=== PATIENT | male | born 1940 | race Caucasian/White ===

== ENCOUNTER 2021-05-02 11:27 | Emergency (ER) | payer MEDICARE ==
[~2021-05-02] VITALS: Ht 176.5 cm; Wt 73.0 kg
[2021-05-02] MEDS ORDERED: IV NORMAL SALINE 1,000ML 1,000 ML IV SCH (12:00)
--- NOTE | 2021-05-02 12:06 | PHYS DOC ---
General Adult EDM: Chief Complaint: FATIGUE HPI: HPI: Patient is a 80-year-old male who presents to the emergency department from [facility] for complaints of possible cellulitis versus DVT to his right lower leg. Per nursing staff, patient is having redness, swelling and warmth to his right lower leg at the site of a venous ulcer. According to patient's chart from facility, patient has had a venous ulcer to the right lower leg since March 27 and has been being cared for with chlorhexidine washes and mupirocin ointment. Patient is currently being treated for MRSA at his site of his removed peg tube with Augmentin. Patient denies any abdominal pain, chest pain, lower extremity pain, shortness of breath, fevers, nausea, vomiting. 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 (TUNDE LUNDY APRN) Review of Systems: Review of Systems: Constitutional: negative unless reported in HPI Eyes: negative unless reported in HPI HENT: negative unless reported in HPI Respiratory: negative unless reported in HPI Cardiovascular: negative unless reported in HPI GI: negative unless reported in HPI : negative unless reported in HPI Musculoskeletal: negative unless reported in HPI Integument: negative unless reported in HPI Neurologic: negative unless reported in HPI Endocrine: negative unless reported in HPI Lymphatic: negative unless reported in HPI Psychiatric: negative unless reported in HPI (TUNDE LUNDY APRN) Current Medications: Current Meds: Current Medications Medications (Trade) Dose Ordered Sig/Lucía Start Time Stop Time Status Last Admin Dose Admin Sodium Chloride 1,000 ml @ 1,000 mls/hr Q1H 05/02/21 12:00 05/02/21 12:59 (TUNDE LUNDY APRN) Allergies: Allergies: Allergies Coded Allergies Type Severity Reaction Last Updated Verified No Known Drug Allergies 05/02/21 No (TUNDE LUNDY APRN) Physical Exam: PE: Constitutional: Well developed, well nourished, no acute distress, non-toxic appearance. [] HENT: Normocephalic, atraumatic, bilateral external ears normal, oropharynx moist, no oral exudates, nose normal. [] Eyes: PERRL, EOMI, conjunctiva normal, no discharge. [] Neck: Normal range of motion, no stridor Cardiovascular:Heart rate regular rhythm, no murmur [] Lungs & Thorax: Bilateral breath sounds clear to auscultation [] Abdomen: Bowel sounds normal, soft, no tenderness, 0.5 cm circular wound to left upper abdomen at previous PEG tube site with purulent drainage and erythema surrounding there is a dressing in place over site that is dated for May 01, no masses, obese, no pulsatile masses. [] Skin: Warm, dry, no erythema, no rash. [] Back: No tenderness Extremities: No tenderness, no cyanosis, no clubbing, ROM intact, no edema noted to left lower extremity. Right lower extremity: Erythema, warmth and swelling noted to right lower extremity from knee down, patient has a weak but palpable dorsalis pedis pulse, patient has a ulceration to the medial aspect of his right ankle approximately 3 cm in diameter that involves subcutaneous tissue with some sloughing of tissue. Neuro intact to bilateral lower extremities. Neurologic: Alert and oriented X 3, normal motor function, normal sensory function, no focal deficits noted. [] Psychologic: Affect normal, judgement normal, mood normal. [] (TUNDE LUNDY APRN) Current Patient Data: Labs: Laboratory Tests Test 05/02/21 12:15 05/02/21 12:20 White Blood Count 7.6 x10^3/uL Red Blood Count 2.79 x10^6/uL Hemoglobin 9.8 g/dL Hematocrit 29.3 % Mean Corpuscular Volume 105 fL Mean Corpuscular Hemoglobin 35 pg Mean Corpuscular Hemoglobin Concent 34 g/dL Red Cell Distribution Width 12.1 % Platelet Count 408 x10^3/uL Neutrophils (%) (Auto) 77 % Lymphocytes (%) (Auto) 8 % Monocytes (%) (Auto) 8 % Eosinophils (%) (Auto) 6 % Basophils (%) (Auto) 1 % Neutrophils # (Auto) 5.9 x10^3uL Lymphocytes # (Auto) 0.6 x10^3/uL Monocytes # (Auto) 0.6 x10^3/uL Eosinophils # (Auto) 0.5 x10^3/uL Basophils # (Auto) 0.0 x10^3/uL Erythrocyte Sedimentation Rate Pending Urine Collection Type Unknown Urine Color Yellow Urine Clarity Hazy Urine pH 6.0 Urine Specific [place] 1.020 Urine Protein Neg Urine Glucose (UA) Neg mg/dL Urine Ketones (Stick) Neg mg/dL Urine Blood Small Urine Nitrite Neg Urine Bilirubin Neg Urine Urobilinogen Dipstick 0.2 mg/dL Urine Leukocyte Esterase Large Urine RBC 1-2 /HPF Urine WBC >40 /HPF Urine Squamous Epithelial Cells None /LPF Urine Bacteria Few /HPF Sodium Level 143 mmol/L Potassium Level 4.3 mmol/L Chloride Level 107 mmol/L Carbon Dioxide Level 28 mmol/L Anion Gap 8 Blood Urea Nitrogen 19 mg/dL Creatinine 1.2 mg/dL Estimated GFR (Cockcroft-Gault) 58.4 BUN/Creatinine Ratio 16 Glucose Level 88 mg/dL Calcium Level 8.9 mg/dL Total Bilirubin 0.2 mg/dL Aspartate Amino Transf (AST/SGOT) 25 U/L Alanine Aminotransferase (ALT/SGPT) 27 U/L Alkaline Phosphatase 118 U/L Total Protein 6.2 g/dL Albumin 2.6 g/dL Albumin/Globulin Ratio 0.7 Lactic Acid Level 0.9 mmol/L Troponin I High Sensitivity 9 ng/L Current Medications Medications (Trade) Dose Ordered Sig/Lucía Route PRN Reason Start Time Stop Time Status Last Admin Dose Admin Sodium Chloride 1,000 ml @ 1,000 mls/hr Q1H IV 05/02/21 12:00 05/02/21 12:59 DC 05/02/21 12:25 (TUNDE LUNDY APRN) EKG: EKG: EKG performed by ER staff at 1312 shows sinus rhythm with a rate of 75, leftward axis deviation, no STEMI read by Dr. Wick at 1312 [] (TUNDE LUNDY APRN) Radiology/Procedures: Radiology/Procedures: []PROCEDURE: VENOUS LOWER EXTREMITY RIGHT STUDY: US DPLX VENOUS EXTREMITY LOWER RT INDICATION: Right calf pain and edema. Calf wound. TECHNIQUE: Color-flow and pulsed wave duplex ultrasound with compression of venous structures of the right lower extremity. COMPARISON: None Available. FINDINGS: The right common femoral vein and proximal great saphenous vein are patent. The proximal and mid superficial femoral vein and proximal deep femoral vein are patent with normal compressibility. At the distal right superficial femoral vein and popliteal vein there is a patent lumen identified however incomplete compressibility. Extensive cobblestoning of the subcutaneous fat in the calf consistent with edema. The veins of the calf are not visualized due to overlying edema. IMPRESSION: Incompletely occlusive mural thrombus in the right distal superficial femoral vein and popliteal vein consistent with deep venous thrombosis, likely chronic. Findings discussed with TUNDE LUNDY APRN at 05/02/2021 1:04 PM. FOR INTERNAL CODING PURPOSES RESULT CODE: (C) Electronically signed by: Jorje Kirby MD (05/02/2021 1:04 PM) [id number] DICTATED AND SIGNED BY: JORJE KIRBY MD DATE: 05/02/21 1259 CC: TUNDE LUNDY APRN; PCP,NO ~MTH0 0 (TUNDE LUNDY APRN) Heart Score: C/O Chest Pain: No Risk Factors: Risk Factors: DM, Current or recent (<one month) smoker, HTN, HLP, family history of CAD, obesity. Risk Scores: Score 0 - 3: 2.5% MACE over next 6 weeks - Discharge Home Score 4 - 6: 20.3% MACE over next 6 weeks - Admit for Clinical Observation Score 7 - 10: 72.7% MACE over next 6 weeks - Early Invasive Strategies (TUNDE LUNDY APRN) Course & Med Decision Making: Course & Med Decision Making Pertinent Labs and Imaging studies reviewed. (See chart for details) [] Patient presents to the emergency department for swelling, redness and warmth noted to right lower extremity from a rehab facility. Per nursing staff, patient is currently being treated for MRSA at the previous PEG tube site with Augmentin. Patient does have a history of venous ulcers to his right ankle and is being treated with chlorhexidine washes and mupirocin ointment. Patient also has a history of a DVT therefore nursing staff was concerned for possible DVT to his right lower leg. Patient does not have any complaints. Patient is afebrile. He does not wear any oxygen at the facility but is 91% on room air in the emergency department and was placed on 2 L via nasal cannula. He does not report any shortness of breath or chest pain. Work-up in the emergency department today consisted of blood work including lactic acid, ESR, blood cultures, urinalysis, and ultrasound of right lower leg to rule out DVT. The 9.8, hematocrit 29.3, patient does have a history of anemia. Patient does not have any leukocytosis or leukopenia. Negative troponin, CMP unremarkable, negative lactic acidosis. Urinalysis does show urinary tract infection, patient is currently on Augmentin, he will be given a dose of IV Rocephin in the emergency department and advised to continue Augmentin. 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 Chest x-ray shows no acute findings. [facility], they report the patient has a wound care plus and saw them today. I noified RN about eliquis dose adjustment, uti and need for continuing wound care and monitoring. Patient's vital signs are stable, he is not requiring any oxygen, his [id number] on room air is 98%. Consulted supervising physician. I discussed with patient all findings and diagnostic testing as well as the need to follow-up with PCP for further evaluation and treatment or return to the ER if any new or worsening symptoms. Strict return precautions were also discussed at length. Patient voiced understanding and agreement with the plan. Patient is hemodynamically stable at the time of disposition. (TUNDE LUNDY APRN) Course & Med Decision Making I personally saw and evaluated patient along with involvement of the PA/OPERATIONS AGENT. I agree with the reported plan of care and ultimate disposition. I performed all aspects of MDM as documented including evaluation of patient/s condition(s), review and analysis of available data, and determination of risk of patient management decisions. Patient has DVT, likely chronic. Needs to increase Eliquis to treatment dose from 5 mg twice daily to 10 mg twice daily, [facility]. Urinalysis showing leuk esterase, currently on antibiotic therapy for outpatient cellulitis on Augmentin. I agree with decision to administer Rocephin and continue Augmentin with [facility] and monitoring of urine culture. Patient has good pulses to foot, nonischemic in nature with viable tissue for a what appears to be healing venous ulcer of distal medial portion of guerrero Electronically signed, Leeann Wick DO (LEEANN WICK DO) Fernando Disclaimer: Fernando Disclaimer: This electronic medical record was generated, in whole or in part, using a voice recognition dictation system. (TUNDE LUNDY APRN) Departure Departure: Impression: Primary Impression: Urinary tract infection Qualified Codes: N30.01 - Acute cystitis with hematuria Additional Impression: Deep vein thrombosis Qualified Codes: I82.531 - Chronic embolism and thrombosis of right popliteal vein Disposition: HOME / SELF CARE / HOMELESS Condition: GOOD Referrals: PCP,NO (PCP) Patient Instructions: Deep Vein Thrombosis, Urinary Tract Infection Additional Instructions: You were seen in the emergency department for redness, warmth and swelling to your right lower leg. You do have a blood clot which is likely chronic. Please take the Eliquis that is prescribed for you, noticed the dose adjustment for DVT treatment. Continue taking your Augmentin which should treat your wound and your urinary tract infection, you were given a dose of IV antibiotics in the emergency department. Please continue to follow-up with wound care regarding the ulceration on your right ankle. Follow-up with the primary care provider at [facility] tomorrow regarding your ER visit. Return to the emergency department if you develop altered mental status, confusion, high fevers refractory to treatment, intractable nausea or vomiting, lethargy, abdominal pain, or worsening of your infection as indicated by increased redness, warmth, swelling or drainage, severe back pain. Scripts Apixaban (ELIQUIS) 5 Mg Tablet 10 MG PO BID for dvt for 7 Days, #28 TAB 0 Refills Prov: TUNDE LUNDY APRN 05/02/21 TUNDE LUNDY APRN May 02, 2021 12:06 LEEANN WICK DO May 02, 2021 14:34
[2021-05-02 12:56] LABS: BASO % 1 % (0-3); EOS # 0.5 x10^3/uL (0.0-0.7); EOS % 6 % (0-3); HEMATOCRIT 29.3 % (39.0-53.0); HEMOGLOBIN 9.8 g/dL (13.0-17.5); LYMPH # 0.6 x10^3/uL (1.0-4.8); LYMPH % 8 % (24-48); MEAN CORPUSCULAR HEMOGLOBIN 35 pg (25-35); MEAN CORPUSCULAR HGB CONC 34 g/dL (31-37); MEAN CORPUSCULAR VOLUME 105 fL (79-100); MONO # 0.6 x10^3/uL (0.0-1.1); MONO % 8 % (0-9); NEUT # 5.9 x10^3uL (1.8-7.7); NEUT % 77 % (31-73); PLATELET COUNT 408 x10^3/uL (140-400); RED BLOOD COUNT 2.79 x10^6/uL (4.30-5.70); RED CELL DISTRIBUTION WIDTH 12.1 % (11.5-14.5); WHITE BLOOD COUNT 7.6 x10^3/uL (4.0-11.0)
[2021-05-02 13:02] LABS: CALCIUM 8.9 mg/dL (8.5-10.1); CREATININE 1.2 mg/dL (0.7-1.3); GFR 58.4; POTASSIUM 4.3 mmol/L (3.5-5.1)
--- NOTE | 2021-05-02 13:07 | RAD ---
STUDY: US DPLX VENOUS EXTREMITY LOWER RT INDICATION: Right calf pain and edema. Calf wound. TECHNIQUE: Color-flow and pulsed wave duplex ultrasound with compression of venous structures of the right lower extremity. COMPARISON: None Available. FINDINGS: The right common femoral vein and proximal great saphenous vein are patent. The proximal and mid supe rficial femoral vein and proximal deep femoral vein are patent with normal compressibility. At the distal right superficial femoral vein and popliteal vein there is a patent lumen identified ho wever incomplete compressibility. Extensive cobblestoning of the subcutaneous fat in the calf consistent with edema. The veins of the c fdc are not visualized due to overlying edema. IMPRESSION: Incompletely occlusive mural thrombus in the right distal superficial femoral vein and popliteal vein consistent with deep venous thrombosis, likely chronic. Findings discussed with TUNDE LUNDY APRN at 05/02/2021 1:04 PM. FOR INTERNAL CODING PURPOSES RESULT CODE: (C) Electronically signed by: Jorje Triplett MD (05/02/2021 1:04 PM) [id number]
[2021-05-02 13:08] LABS: ALBUMIN 2.6 g/dL (3.4-5.0); ALBUMIN/GLOBULIN RATIO 0.7 (1.0-1.7); TOTAL BILIRUBIN 0.2 mg/dL (0.2-1.0); TOTAL PROTEIN 6.2 g/dL (6.4-8.2)
[2021-05-02 13:09] LABS: BACTERIA,URINE FEW /HPF (0-FEW); CLARITY,URINE HAZY; COLOR,URINE YELLOW; GLUCOSE,URINE NEG (NEG); NITRITE,URINE NEG (NEG); UROBILINOGEN,URINE 0.2 mg/dL (0.2 mg/dL); WBC,URINE >40 /HPF (0-4)
--- NOTE | 2021-05-02 13:20 | RAD ---
AP chest. HISTORY: Hypoxia AP view was taken of the chest. Patient's taken a poor inspiration. There is rotator cuff degeneratio n in the shoulders. Heart is within normal limits in size. There is no effusion. There are no conflue nt infiltrates. There are old right rib fractures. IMPRESSION: 1. No acute infiltrates. Electronically signed by: Rl Copeland MD (05/02/2021 1:16 PM) [facility]
[2021-05-02] MEDS ORDERED: cefTRIAXone SODIUM 1 GM VIAL ONE (13:55)
[2021-05-02] MEDS ORDERED: APIX5TAB3 PO (13:55)
[2021-05-02] MEDS ORDERED: IV NORMAL SALINE 50ML 50 ML ONE (13:55)
--- NOTE | 2021-05-02 13:59 | EKG ---
[address] [address] Test Date: 2021-05-02 Test Time: 13:12:10 Pat Name: FAB STRONG Department: Room: Gender: M Container Filler: FADUMO : 1940 Requested By: TUNDE LUNDY Order Number: [id number] Reading MD: Camron Orozco MD Measurements Intervals [place] Rate: 75 P: 27 MA: 212 QRS: -6 QRSD: 68 T: 25 QT: 374 QTc: 420 Interpretive Statements SINUS RHYTHM Electronically Signed On 05-07-2021 11:20:22 TELEHEALTH DIRECTOR by Camron Orozco MD
[2021-05-02 14:02] LABS: SEDIMENTATION RATE 112 (0-15)
[2021-05-02 16:52] VITALS: BP 144/84
== END 2021-05-02 16:54 | disposition home or self-care (01) ==
LOC: ER 11:27
DX: I82.531 Chronic embolism and thrombosis of right popliteal vein (principal); N30.01 Acute cystitis with hematuria; I11.0 Hypertensive heart disease with heart failure; I50.9 Heart failure, unspecified; E03.9 Hypothyroidism, unspecified; F03.90 Unspecified dementia, unspecified severity, without behavioral disturbance, psychotic disturbance, mood disturbance, and anxiety
CPT/HCPCS: 36415; 71045; 80053; 81001; 83605; 84484; 85025; 85651; 87040; 87086; 93005; 93971; 96361; 96365; 99285; J0696; J7030; P9612; 96375